=== PATIENT | female | born 1980 ===

== ENCOUNTER → 2018-08-24 | Outpatient (CLI) | payer SELFPAY ==
[2018-08-24 13:12] LABS: HEMATOCRIT 32.5 % (36.0-47.0); HEMOGLOBIN 10.5 g/dl (12.0-15.5); MEAN CORPUSCULAR HEMOGLOBIN 32.8 pg (27.0-33.0); MEAN CORPUSCULAR HGB CONC 32.3 g/dl (32.0-36.5); MEAN CORPUSCULAR VOLUME 101.6 fl (80.0-96.0); PLATELET COUNT, AUTOMATED 194 10^3/uL (150-450)
== END ==
LOC: M SMT 10:57
PROVIDERS: ATTEND Specialist
DX: Z34.83 Encounter for supervision of other normal pregnancy, third trimester (principal); Z3A.00 Weeks of gestation of pregnancy not specified

== ENCOUNTER → 2018-09-08 | Outpatient (REF) | payer SELFPAY | LOC: M LAB REF 17:21 | PROVIDERS: ATTEND Advanced Practice Midwife | DX: Z34.83 Encounter for supervision of other normal pregnancy, third trimester (principal); Z3A.00 Weeks of gestation of pregnancy not specified ==

== ENCOUNTER → 2018-09-08 | Outpatient (CLI) | payer SELFPAY ==
[2018-09-08 13:38] LABS: ALBUMIN 2.4 GM/DL (3.2-5.2); ALT/SGPT 27 U/L (12-78); AMYLASE 33 U/L (25-115); BILIRUBIN,TOTAL 0.3 MG/DL (0.2-1.0); BLOOD UREA NITROGEN 5 MG/DL (7-18); CALCIUM LEVEL 8.9 MG/DL (8.5-10.1); CARBON DIOXIDE LEVEL 26 MEQ/L (21-32); CHLORIDE LEVEL 107 MEQ/L (98-107); CREATININE FOR GFR 0.37 MG/DL (0.55-1.30); GLOMERULAR FILTRATION RATE > 60.0 (>60); GLUCOSE, FASTING 93 MG/DL (70-100); LIPASE 66 U/L (73-393); POTASSIUM SERUM 3.8 MEQ/L (3.5-5.1); SODIUM LEVEL 141 MEQ/L (136-145); TOTAL PROTEIN 5.5 GM/DL (6.4-8.2)
[2018-09-08 13:53] LABS: HEPATITIS B SURFACE ANTIGEN NEGATIVE (NEGATIVE)
[2018-09-08 14:22] LABS: HIV 1&2 SCREEN CENTAUR NEGATIVE (NEGATIVE)
== END ==
LOC: M SMT 11:17
PROVIDERS: ATTEND Advanced Practice Midwife
DX: Z34.83 Encounter for supervision of other normal pregnancy, third trimester (principal); Z3A.00 Weeks of gestation of pregnancy not specified

== ENCOUNTER 2018-09-25 22:46 | Inpatient (IN) | payer SELFPAY ==
[~2018-09-25] VITALS: Ht 157.5 cm; Wt 79.1 kg
[2018-09-25 23:10] VITALS: BP 112/67
[2018-09-25] MEDS ORDERED: OXYTOCIN 30 UNITS IN 0.9% NaCl 500ML IV BAG (J2590) As Ordered ONE (23:21)
[2018-09-25 23:38] VITALS: BP 112/58
[2018-09-25 23:57] VITALS: BP 109/60
[2018-09-26] MEDS ORDERED: DIBUCAINE 1% OINTMENT 30GM TOP PRN
[2018-09-26] MEDS ORDERED: METHYLERGONOVINE MALEATE 0.2 MG TAB PO PRN
[2018-09-26] MEDS ORDERED: miSOPROStol 200 MCG TAB (S0191) PR ONE
[2018-09-26] MEDS ORDERED: ACETAMINOPHEN 500 MG TAB PO PRN
[2018-09-26] MEDS ORDERED: RHOGAM 300 MCG (1500 IU) INJ (J2790) IM SCH
[2018-09-26] MEDS ORDERED: OXYTOCIN INJ 10 UNITS/ML VIAL (J2590) IM ONE
[2018-09-26] MEDS ORDERED: ANUSOL HC CREAM 30GM TOP PRN
[2018-09-26] MEDS ORDERED: ACETAMINOPHEN TAB 650MG DOSE (2X325MG) PO PRN
[2018-09-26] MEDS ORDERED: DOCUSATE SODIUM 100 MG CAP PO PRN
[2018-09-26] MEDS ORDERED: MOM 30ML SUSPENSION UDC PO PRN
[2018-09-26] MEDS ORDERED: IBUPROFEN 600 MG TAB PO PRN
[2018-09-26] MEDS ORDERED: MEASLES,MUMPS,RUBELLA VACCINE INJ (MMR-II) (90707) SC SCH
[2018-09-26 00:12] VITALS: BP 113/61
[2018-09-26 00:33] LABS: HEMATOCRIT 35.4 % (36.0-47.0); HEMOGLOBIN 11.7 g/dl (12.0-15.5); MEAN CORPUSCULAR HEMOGLOBIN 34.2 pg (27.0-33.0); MEAN CORPUSCULAR HGB CONC 33.1 g/dl (32.0-36.5); MEAN CORPUSCULAR VOLUME 103.5 fl (80.0-96.0); PLATELET COUNT, AUTOMATED 206 10^3/uL (150-450); RED BLOOD COUNT 3.42 10^6/uL (4.00-5.40); WHITE BLOOD COUNT 9.4 10^3/uL (4.0-10.0)
[2018-09-26] MEDS ORDERED: PRENTAB9 PO (00:40)
--- NOTE | 2018-09-26 01:09 | HPE ---
DATE OF ADMISSION: 09/25/2018 REASON FOR ADMISSION: Labor. HISTORY OF PRESENT ILLNESS: Ms. Rehman is a 38-year-old 12, para 11 who presents at 40 weeks and 1 day estimated gestational age by last menstrual period with complaints of contractions. She reports contractions throughout day that have increased in intensity and frequency. She reports active movement and denies any vaginal bleeding or leakage of fluid. Her course has was initiated at 35 weeks. She has had a total of three visits. PAST MEDICAL HISTORY: None. PAST SURGICAL HISTORY: None. PAST OBSTETRICAL HISTORY: She is 11, para 11. She has had eleven vaginal deliveries. She is proven to 10 pounds and 4 ounces. SOCIAL HISTORY: She is of Congregation descent. She lives at home with her children and . MEDICATIONS: None. ALLERGIES: She has no known drug allergies. PHYSICAL EXAMINATION: VITAL SIGNS: Stable. She is afebrile. She has rate tracing with heart rate of 140s. GENERAL APPEARANCE: No acute distress. ABDOMEN: Abdomen is gravid, nontender. CERVICAL EXAM: She is completely dilated, 100% effaced, bulging bag of membranes. LABORATORIES: Human immunodeficiency virus (HIV) is negative. Group B Streptococcus (GBS) was negative. Hepatitis B was negative. ASSESSMENT: Ms. Rehman is a 38-year-old 12 para 11 in active labor. PLAN: Anticipate spontaneous vaginal delivery. MTDD
[2018-09-26] MEDS: IBUPROFEN 800 MG TAB PO PRN ×2 (01:24→11:46)
[2018-09-26 01:57] VITALS: BP 119/57
[2018-09-26 06:11] VITALS: BP 107/57
--- NOTE | 2018-09-26 08:30 | DN ---
DATE OF PROCEDURE: 09/25/2018 TIME OF : 2325. GENDER: Female. APGARS: 9 and 9 WEIGHT: 9 pounds 3 ounces or 4160 grams, LACERATIONS: None. ANESTHESIA: None. ESTIMATED BLOOD LOSS: 300 mL COUNTS: 5 laparotomy sponges accounted for prior to and after delivery. DELIVERY NOTE: On September 25, 2018 at 2326, Mrs. Rehman, a 38-year-old, 12 now para 12, had a spontaneous vaginal delivery of live born female , Apgars 9 and 9, weight was 9 pounds 3 ounces, 4160 grams. Head was delivered occiput anterior (OA) over intact perineum. There was a nuchal cord, which was manually reduced followed by delivery of right anterior shoulder, left posterior shoulder and corpus. Infant was handed to mom with good cry. Cord was clamped times two and was cut by the father of baby under my direction. Cord blood was then obtained. Placenta was then drained and delivered grossly intact. 10 units of Pitocin was given intramuscular (IM) along with uterine massage. The uterus was firm. On inspection cervix, vagina and perineum was grossly intact. Mom and baby recovered in stable condition.
[2018-09-26] MEDS ORDERED: PRENATAL VITAMINS CHEWABLE TABLET PO SCH (09:00)
[2018-09-26] MEDS ORDERED: MAPA500T2 PO ×2 (16:04)
[2018-09-26] MEDS ORDERED: IBUP-1114 PO ×2 (16:04)
== END 2018-09-26 16:46 | disposition home or self-care (01) | DRG 560 ==
LOC: M LDO 22:46 → M LDI 23:21 → M OBS 09-26 01:37
PROVIDERS: ADMIT Obstetrics & Gynecology; ATTEND Obstetrics & Gynecology
PROC: 10E0XZZ Delivery of Products of Conception, External Approach (ICD-10-PCS; principal; 2018-09-25)
DX: O48.0 Post-term pregnancy (principal); O09.523 Supervision of elderly multigravida, third trimester; Z37.0 Single live birth; Z3A.40 40 weeks gestation of pregnancy; O09.31 Supervision of pregnancy with insufficient antenatal care, first trimester; O09.32 Supervision of pregnancy with insufficient antenatal care, second trimester; O09.33 Supervision of pregnancy with insufficient antenatal care, third trimester